=== PATIENT | female | born 1980 | race Caucasian/White ===

== ENCOUNTER 2021-01-23 13:31 | Emergency (ER) | payer OTHER ==
[~2021-01-23] VITALS: Ht 167.6 cm; Wt 64.9 kg
[2021-01-23 13:42] VITALS: BP 130/90
--- NOTE | 2021-01-23 13:43 | NUR ---
pt ambulated to bed 09.
--- NOTE | 2021-01-23 13:49 | NUR ---
40 Y/O F BIB SELF FROM HOME, PT PRESENTS TO ED WITH R ARM PRESSURE "FEELS LIKE A BLOOD PRESSURE CUFF IS ON MY ARM" FOR 1 WEEK, THIS MORNING PAIN STARTING INCREASING. PT ALSO STATES "I HAVE A BUMP WHERE MY VEIN IS AND IT COMES AND GOES". C/O BILATERAL FEET SWELLING. DENIES N/V/D; SKIN IS PINK/WARM/DRY; AAOX4 WITH EVEN AND STEADY GAIT; LUNGS CLEAR BL; HR EVEN AND REGULAR; PT DENIES ANY FEVER, CP, SOB, OR COUGH AT THIS TIME; PATIENT STATES PAIN OF 0/10 AT THIS TIME, PAIN COMES AND GOES; VSS; PATIENT POSITIONED FOR COMFORT; HOB ELEVATED; BEDRAILS UP X2; BED DOWN. ER MD MADE AWARE OF PT STATUS. PMH: DENIES MED: CLONAZAPAM 0.5MG TODAY 0830 FOR ANXIETY NKA
--- NOTE | 2021-01-23 15:35 | NUR ---
Patient discharged with v/s stable. Written and verbal after care instructions given and explained. Patient verbalized understanding. Ambulatory with steady gait. All questions addressed prior to discharge. Advised to follow up with PMD.
== END 2021-01-23 15:35 | disposition home or self-care (01) ==
LOC: MED 13:31
DX: M77.9 Enthesopathy, unspecified (principal)
CPT/HCPCS: 99282